=== PATIENT | female | born 1960 | race African-American/Black ===

== ENCOUNTER 2016-07-30 10:42 | Inpatient (IN) ==
[2016-07-30] MEDS ORDERED: FUROSEMIDE 100 MG/10 ML VIAL IV STA (11:07)
[2016-07-30] MEDS ORDERED: FUROSEMIDE 100 MG/10 ML VIAL ONE (11:18)
[2016-07-30] MEDS ORDERED: DOPamine 800 MG/250 ML PREMIX IV ONE (11:55)
--- NOTE | 2016-07-30 12:07 | XRay Report ---
Portable chest Date: 07/30/2016 Clinical history: Shortness of breath Comparison: None Technique: Portable AP sitting chest Findings: The heart is enlarged. Limited expiratory chest with relative elevation of the right hemidiaphragm which projects 73 mm higher than the left. Atelectasis/infiltration in both lungs. No acute osseous findings are noted. Impression: Limited expiratory chest. Relative elevation of the right hemidiaphragm with atelectasis/infiltration in the right mid to lower lung zone and at the left lung base. PROCEDURE INTERPRETED AT [facility] DEPARTMENT OF RADIOLOGY Final Report Signed by: Dr. Chana Yan
[2016-07-30 12:10] LABS: Basophils # 0.1 10*3/uL (0.0-0.2); Basophils % 0.3 % (0.0-0.8); Eosinophils % 0.1 % (0.00-10.9); Hematocrit 36.8 VOL% (35.7-47.0); Hemoglobin 13.1 GM/DL (12.0-16.0); Immature Granulocytes % 2.4 %; Immature Granulocytes Absolute 0.38 #; Lymphocytes # 1.6 10*3/uL (1.4-4.0); Lymphocytes % 9.6 % (21.3-54.2); Mean Corpuscular HGB Conc 35.6 GM/DL (32-36); Mean Corpuscular Hemoglobin 28 PG (27-34); Mean Corpuscular Volume 78.6 FL (87-102); Mean Platelet Volume 12.2 FL (9.6-12.0); Monocytes # 0.5 10*3/uL (0.11-0.8); Monocytes % 3.3 % (1.7-12.7); Neutrophils # 13.6 10*3/uL (1.4-7.4); Neutrophils % 84.3 % (38.7-73.9); Platelet Count 297 T/CUMM (130-400); Red Blood Count 4.68 MC/CUMM (3.8-5.5); Red Cell Distribution Width 14.4 % (9.3-17.3); White Blood Count 16.1 T/CUMM (4-12)
[2016-07-30] MEDS ORDERED: DOPamine 800 MG/250 ML PREMIX IV SCH (12:30)
[2016-07-30 12:35] LABS: Calcium 8.1 MG/DL (8.5-10.1); Osmolality,Calculated 280.1 MOS/KG (273-304); Potassium 5.2 MMOL/L (3.5-5.1)
[2016-07-30 12:38] LABS: Band Neutrophils 16 % (0-10); Burr Cells Slight; Hypochromasia 1+; Lymphocytes 10 % (20-55); Metamyelocytes 5 %; Microcytosis 1+; Segmented Neutrophils 66 % (50-85); Target Cells Slight; Total Cells Counted 100
[2016-07-30 12:41] LABS: Platelet Estimate Adequate
[2016-07-30] MEDS ORDERED: ENOXAPARIN 120 MG/0.8 ML SYRINGE SUBCUT STA (12:43)
[2016-07-30] MEDS ORDERED: ENOXAPARIN 120 MG/0.8 ML SYRINGE SUBCUT ONE (12:44)
[2016-07-30] MEDS ORDERED: SODIUM CHLORIDE 0.9% 500 ML IV STA ×2 (12:44→13:13)
[2016-07-30] MEDS ORDERED: MEROPENEM 1,000 MG in SODIUM CHLORIDE 0.9% 100 ML IV STA (12:46)
[2016-07-30] MEDS ORDERED: MEROPENEM 1,000 MG VIAL IV ONE (13:09)
--- NOTE | 2016-07-30 13:18 | Ultrasound Report ---
Exam: Bilateral lower extremity venous Doppler ultrasound Comparison: None Clinical history: Shortness of breath Technique: Duplex scan of the lower extremity veins using B-mode/grayscale scaled imaging and Doppler spectral analysis and color flow. Findings: Major venous structures of the lower extremities demonstrate a normal course and caliber. Normal color-flow study and spectral analysis. There is normal compression and augmentation of bilateral common femoral, superficial femoral and popliteal veins. The proximal bilateral greater saphenous veins appear to be patent. Impression: No evidence to suggest deep venous thrombosis within either lower extremity. Ultrasound images were captured and stored. PROCEDURE INTERPRETED AT [facility] DEPARTMENT OF RADIOLOGY Final Report Signed by: Dr. Chana Yan
--- NOTE | 2016-07-30 13:40 | EKG Report ---
Stationary ECG Study [facility] ER Test Date: 07/30/2016 11:17:31 AM Pat Name: CAMILLA PENN Department: Room: 116 Gender: F Biostatistics Teacher: KEYSHA Appiah : 1960 Requested by: Drew Briggs Order Number: [id number] Reading MD: JOHN KATE Intervals [place] Rate: 112 P: -4 OH: 140 QRS: -6 QRSD: 101 T: 95 QT: 302 QTc: 368 Interpretive Statements SINUS TACHYCARDIA POOR R-WAVE PROGRESSION Electronically Signed On 07-31-16 12:03:20 CDT by JOHN KATE [email or web address]
[2016-07-30 13:44] LABS: INR 1.2; PT Patient Result 12.9 SECS; Partial Thromboplastin Time 32.8 SECS (0-40)
[2016-07-30] MEDS ORDERED: ONDANSETRON 4 MG/2 ML VIAL IV STA (14:04)
[2016-07-30] MEDS ORDERED: SODIUM CHLORIDE 0.9% 1,000 ML IV STA (14:04)
--- NOTE | 2016-07-30 14:11 | Emergency Department Note ---
Elian Gordillo Brooke, am scribing for, and in the presence of, Mazin Hernandez MD 11 :08. David Gordillo Doug C, MD, personally performed the services described in this documentation, ascribed by Pamela Plummer in my presence, and it is both accurate and complete . Arrival - Arrival Chief Complaint: Shortness of Breath Stated Complaint: SOB ED Nursing Triage Note: pt to triage with c/o having sob onset last night around 0000, pt denies any sob. pt states she was just seen in er yesterday and that they found a mass in her abd. pt states she just cant catch her breath. unable to obtain all vital signs in triage upon multiple attempts. Mode of Arrival: Wheelchair Limitations: No Limitations Source: Patient, Family, RN Notes Reviewed - History of Present Illness HPI Narrative: Patient 56-year-old black female presents emergency room complaining of increasing shortness of breath. Patient been here to the emergency room yesterday and was found to have a very large ovarian mass. Patient was seen in the ER by Dr. Hess and I discussed her care with Dr. Petty at [facility]. They were on diversion yesterday but we were able to make Mrs. Gee an appointment to be seen by the [facility]PERATIONS [facility]NALY[facility] oncology clinic on August 01. Patient states she developed increasing shortness of breath beginning last night. She denies any chest pain and she denies any abdominal pain. Her abdomen continues to be tense as yesterday. Allergies/Adverse Reactions: Allergies Allergy/AdvReac Type Severity Reaction Status Date / Time No Known Allergies Allergy Unverified 07/29/16 06:29 Home Medications: Home Medications Medication Instructions Recorded Confirmed Type Aspirin [Ecotrin] 81 mg PO QPM 07/29/16 07/30/16 History Ondansetron Tab [Zofran Tab] 4 mg PO Q6H #20 tablet 07/29/16 07/30/16 Rx Promethazine Tab [Phenergan Tab] 25 mg PO Q6H #20 tablet 07/29/16 07/30/16 Rx amLODIPine [Norvasc] 10 mg PO DAILY 07/29/16 07/30/16 History Review of System - Review of System 12 point system: reviewed and no additional remarkable complaints except as stated - Review of System Constitutional: Absent: fever Respiratory: Present: other (SOB). Absent: respiratory distress Gastrointestinal: Absent: abdominal pain, nausea, vomiting Skin: Absent: rash Medical,Surgical,& Family Hx - Medical History Cardio: History of: Hypertension Genitourinary: History of: Problems (Large left ovarian mass) - Social History Smoking Status: Never smoker Frequency of Alcohol Use: None Type of Drug Use: None Exam Vital Signs: Vital Signs Temperature 96.3 F L 07/30/16 10:48 Pulse Rate 110 H 07/30/16 14:01 Respiratory Rate 26 H 07/30/16 14:01 Blood Pressure 63/45 07/30/16 14:01 O2 Sat by Pulse Oximetry 94 L 07/30/16 14:01 - General General appearance: alert, in distress (Patient is dyspneic at rest) - Head Head exam: Present: atraumatic, normocephalic - Eye Eye exam: Present: normal appearance, PERRL, EOMI - ENT ENT exam: Present: normal exam - Neck Neck exam: Present: normal inspection - Chest Chest inspection: Present: normal inspection, symmetric chest wall rise - Respiratory Respiratory exam: Present: rales (bibasilar), respiratory distress. Absent: normal lung sounds bilaterally - Cardiovascular Cardiovascular exam: Present: regular rate, normal rhythm, normal heart sounds - Abdominal Exam Abdominal exam: Present: distention. Absent: soft, tenderness - Extremities Exam Extremities exam: Present: normal inspection - Back Exam Back exam: Present: normal inspection - Neurological Exam Neurological exam: Present: alert, oriented X3, CN II-XII intact. Absent: motor sensory deficit - Psychiatric Psychiatric exam: Present: normal affect, normal mood - Skin Skin exam: Present: warm, dry, intact, normal color Course Course Narrative: I discussed the patient's clinical presentation and declined from yesterday with physician at [facility]. Patient was not accepted as they do not have any intensive care beds. I called [facility] and discussed her condition and circumstance with Dr. Suarez who also informed me that no unit bed was available. There is no unit beds available at [facility] and I called [facility] and they do not take her insurance. I discussed her care with Dr. Hess and the hospitalist service. I also discussed her care with Dr. Yan and explained my feeling that she needs an emergent paracentesis. I told the family that this could result in extension of tumor to the anterior abdominal wall and they understand the risk and benefits. Patient's presently on IV dopamine after having received a liter of saline. Patient and family are both aware of her critical condition. Results - Labs CBC & BMP: 07/30/16 11:43 07/30/16 11:43 Lab Results: I have reviewed the patients labs Labs: Laboratory Tests 07/30/16 03 11:43 11:43 WBC 16.1 H D MCV 78.6 L MPV 12.2 H Neut % (Auto) 84.3 H Lymph % (Auto) 9.6 L Neut # (Auto) 13.6 H Band Neutrophils 16 H Lymphocytes 10 L Sodium 135 L Potassium 5.2 H Anion Gap 21.2 H BUN 38 H Creatinine 3.60 H Glucose 135 H Calcium 8.1 L Laboratory Tests 07/30/16 11:43 B-Natriuretic Peptide 140 H - Diagnostic Findings Procedure: Chest x-ray: report reviewed by me (Limited expiratory chest. Relative elevation of the right hemidiaphragm with atelectasis/infiltration in the right mid to lower lung zone and at the left lung base.), Ultrasound: report reviewed by me (US venous doppler LE BI: No evidence to suggest deep venous thrombosis within either lower extremity.) Disposition Clinical Impression: Ovarian mass, left, Hypoventilation, Shock Case discussed with: patient, patient's family, patient's physician Disposition: Still a Patient Condition: Critical Time of Disposition: 14:10
[2016-07-30] MEDS ORDERED: SODIUM CHLORIDE 0.9% 0 ML IV ONE (14:33)
[2016-07-30] MEDS ORDERED: HEPARIN/NACL 0.9% 2 UNITS/ML 500 ML IV ONE (14:41)
--- NOTE | 2016-07-30 14:42 | Hospitalist History & Physical ---
<Cande Harper - Last Filed: 07/30/16 14:29> Assessment and Plan - Time spent with patient Time spent with patient: Less than 30 minutes (1) Sepsis associated hypotension Status: Acute Assessment and plan: 56-year-old -[place] female with history of hypertension admitted to Dr. Monsivais with severe sepsis. Patient has elevated white count of 16, hypotensive on dopamine drip. unable to accurately get a good blood pressure or blood gas from patient at this time. Dr. Monsivais will place a central line and art line at the bedside. Sepsis protocol has been initiated to further recommendations to follow Current Visit: Yes (2) Pelvic mass in female Status: Acute Current Visit: No History of Present Illness Chief complaint: sob History of present illness: Ms. Gee is a 56 year old female with history of hypertension presenting to the ED today with increasing shortness of breath. Patient had been to the ED yesterday with nausea vomiting and diarrhea. 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 She also has additional free ascites demonstrated within the abdomen scattered throughout the mesentery and dependent in the pelvis. Peritoneal disease and omental caking is suggested. She has an enlarged left inguinal lymph node that may reflect metastatic disease. Patient patient was treated with anti-medics and discharged home with a follow-up appointment at [place] on Monday for KIL[employer] OPERATOR HELPER oncologist. Patient states otherwise she has had no difficulties. This morning she came back into the ED with increasing shortness of breath. Patient's found to have pulse rate in the 110s high respiratory rate in the 30s and blood pressure is now 63/45. She has been placed on BiPAP receive Lasix a dose of antibiotics, and she has been placed on a dopamine drip. The ED physician has attempted to transfer patient out of the ED to various hospitals and everybody is on diversion. Patient will be admitted by Dr. Monsivais and stabilized for possible transfer to another facility. Home Medications Medication Instructions Recorded Confirmed Type Aspirin [Ecotrin] 81 mg PO QPM 07/29/16 07/30/16 History Ondansetron Tab [Zofran Tab] 4 mg PO Q6H #20 tablet 07/29/16 07/30/16 Rx Promethazine Tab [Phenergan Tab] 25 mg PO Q6H #20 tablet 07/29/16 07/30/16 Rx amLODIPine [Norvasc] 10 mg PO DAILY 07/29/16 07/30/16 History Allergies Allergy/AdvReac Type Severity Reaction Status Date / Time No Known Allergies Allergy Unverified 07/29/16 06:29 Medical,Surgical,& Family Hx - Medical History Cardio: History of: Hypertension Genitourinary: History of: Problems (Large left ovarian mass) - Surgical History Cardiac Surgeries: Patient Denies: Cardiac Surgery Abdominal Surgeries: Patient denies: Abdominal Surgery Reproductive Surgeries: Patient denies;: Genitourinary Surgery - Family History Family History: Denies;: Family Cancer - Social History Smoking Status: Never smoker Frequency of Alcohol Use: None Type of Drug Use: None Review of systems: A complete 10 system review of systems was obtained and pertinent negatives and positives are in HPI Exam - Constitutional Vitals: Period Temp Pulse Resp BP Sys/Baker Pulse Ox Last 24 Hr 110 26 63/45 94 Exam: Constitutional System: Moderate distress. No tremulousness. Head: Normocephalic, atraumatic. Ears, Nose and Throat System: No evidence of Otitis or Mastoiditis. No epistaxis or discharge Eyes System: Pupils equal, round, and reactive. Extraocular muscles intact. Neck: Supple, without adenopathy, No jugular venous distention. No thyromegaly, neck mass, or prior surgery apparent. Respiratory System: Chest diminished breath sounds bilaterally to auscultation. Cardiovascular System: Heart with regular tachycardia rate and rhythm. No murmur. GI System: tense, hard distended abdomen, nontender, no appreciable bowel sounds Musculoskeletal System: limbs with mild pedal edema. Poor distal pulses Neurological System: No discernable sensory deficit. No aphasia Psychiatric System: Conversation is rational Results - Labs CBC & BMP: 07/30/16 11:43 07/30/16 11:43 Lab Results: I have reviewed the past 24 hour labs - EKG EKG results: interpreted by KATTY - Diagnostic Findings Procedure: Chest x-ray: image reviewed by me, report reviewed by me, CT Abdomen and Pelvis: report reviewed by me, image reviewed by me <[place] Monsivais - Last Filed: 07/30/16 16:32> Assessment and Plan - Time spent with patient Time spent with patient: Greater than 30 minutes (1) Severe sepsis with acute organ dysfunction Status: Acute Assessment and plan: presumed intra-abdominal source. Cultures are pending. IV Zosyn for now. Pressors as required. Aggressive IVF hydration. Serial lactic acid Current Visit: Yes (2) Acute respiratory failure with hypoxia Status: Acute Assessment and plan: acute hypoxic and hypercapnic resp failure. While pt initially agreed to intubation and mechanical ventilation she now is wavering on that decision. She now ask to "think about it some more" before allowing us to proceed. Will place on BiPap for now. I anticipate that the pt will further decline and require emergent intubation soon if she does not decide to change to DNR Current Visit: Yes (3) Acute renal failure Status: Acute Assessment and plan: Henry placed. UOP ok so far. suspect ATN related to sepsis. Monitor response to tx of underlying sepsis. Nephrology consult if not improved Current Visit: Yes (4) Metabolic acidosis Status: Acute Assessment and plan: Lactate pending but I anticipate this to be elevated; further compounded by renal failure and respiratory acidosis. 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 tx to [facility] [facility]PERATOR HEL[employer] oncology pending Current Visit: Yes (6) Pelvic mass in female Status: Acute Current Visit: No History of Present Illness History of present illness: Pt seen and examined with CONCHITA Harper. Presumed sepsis and acute hypoxic resp failure POA in pt with large tumor burden in abdomen and pelvis. Thought to be metastatic KILN OPERATOR HELPER cancer. Pt and family advised of anticipated poor prognosis. They wish to proceed with aggressive treatment and consent to central line, a- line, intubation and mechanical ventilation if needed. Exam findings, assessment and plan confirmed as documented. KILN OPERATOR HELPER and oncology consulting. Pt desires eval and tx by [facility]PER[facility] HEL[facility] oncology at [facility]. Currently there are no beds available for transfer. Pt has been accepted for transfer when bed becomes available. Regarding hypoxic resp failure, acute PTE has not been excluded. Acute renal failure precludes CTA. Plan for anticoagulation until this can be excluded. Procedure: central line insertion. Indication= shock, need for venous access. Procedure explained to pt in detail and consent obtained. I was assisted by CONCHITA Harper. The pt was prepped and draped in sterile fashion. I wore sterile gown, gloves, head cover, and mask. Using bedside ultrasound the left IJ was identified and then cannulized under direct visualization. Triple lumen cath placed over wire without complication. All ports flushed and function. Placement confirmed by xray. No pneumothorax. 6 hour severe sepsis bundle: pt has received initial fluid bolus and vasopressor tx. Lactic acid level pending. BP labile but improved. Cap refill less than 3 seconds. Pt is awake and alert. At the time of this documentation we have spent 70 minutes in critical care time. Exam - Constitutional Vitals: Period Temp Pulse Resp BP Sys/Baker Pulse Ox Last 24 Hr 110 26 63/45 94 Results - Labs CBC & BMP: 07/30/16 11:43 07/30/16 11:43
[2016-07-30] MEDS ORDERED: NOREPINEPHRINE 8 MG in SODIUM CHLORIDE 0.9% 242 ML IV SCH (15:00)
[2016-07-30] MEDS ORDERED: PIPERACILLIN/TAZOBACTAM 3,375 MG in SODIUM CHLORIDE 0.9% 100 ML IV SCH (15:00)
--- NOTE | 2016-07-30 15:17 | OB/GYN Consult Note ---
Assessment and Plan (1) Pelvic mass in female Status: Acute Assessment and plan: The pt has been admitted to the ICU due to her low BP, SOB and low O2 sats. We are attempting to transfer her to a facility that has a rn gyn oncologist for further evaluation and treatment. The pt was ruled out for a DVT but we are not able to do a spiral CT to r/u PE due to her creatinine being too high. She was treated with lovenox empirically. The pt's SOB could be due to the mass effect or the ascites. We will consider a paracentesis if needed. Current Visit: No History of Present Illness Chief complaint: SOB History of present illness: Ms. Gee is a 56 year old female This is a 56 y/o G0 who was seen by me yesterday for nausea/vomiting and was noted to have a large adnexal mass which has taken over most of her abdomen. She was also noted to have ascites and omental caking on a CT scan. The pt was discharged home with an appointment made for her to see the rn gyn oncologist, Dr. Dinero. The pt comes in today with SOB and was admitted to the ICU on placed on pressors because she was noted to be hypotensive. Home Medications Medication Instructions Recorded Confirmed Type Aspirin [Ecotrin] 81 mg PO QPM 07/29/16 07/30/16 History Ondansetron Tab [Zofran Tab] 4 mg PO Q6H #20 tablet 07/29/16 07/30/16 Rx Promethazine Tab [Phenergan Tab] 25 mg PO Q6H #20 tablet 07/29/16 07/30/16 Rx amLODIPine [Norvasc] 10 mg PO DAILY 07/29/16 07/30/16 History Allergies Allergy/AdvReac Type Severity Reaction Status Date / Time No Known Allergies Allergy Unverified 07/29/16 06:29 Medical,Surgical,& Family Hx - Medical History Cardio: History of: Hypertension Genitourinary: History of: Problems (Large left ovarian mass) - Surgical History Cardiac Surgeries: Patient Denies: Cardiac Surgery HEENT Surgeries: Patient denies: Tonsilectomy & Adenoidectomy Abdominal Surgeries: Patient denies: Abdominal Surgery Reproductive Surgeries: Patient denies;: Genitourinary Surgery - Family History Family History: Reports;: Family Diabetes, Family Heart Disease, Family Hypertension Denies;: Family Cancer - Social History Smoking Status: Never smoker Frequency of Alcohol Use: None 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
--- NOTE | 2016-07-30 16:08 | XRay Report ---
Portable chest Date: 07/30/2016 Clinical history: Central line placement Comparison: 07/30/2016 Technique: Portable AP sitting chest Findings: Persistent cardiomegaly. Insertion of left IJ CVP line with tip in the lateral SVC location. No definite pneumothorax. Persistent relative elevation on the right hemidiaphragm. Progressive diffuse parenchymal findings in the lungs. Stable mediastinum and osseous structures. Impression: Interval insertion of left IJ CVP line with tip projecting in the lateral SVC location. No definite pneumothorax. Persistent relative elevation of the right hemidiaphragm. Progressive significant atelectasis/infiltration/edema in the lungs with small left pleural effusion. Follow-up chest x-ray recommended. PROCEDURE INTERPRETED AT [facility] DEPARTMENT OF RADIOLOGY Final Report Signed by: Dr. Chana Yan
[2016-07-30 16:16] LABS: ABG Base Excess -9.1 MMOL/L (-2.5-2.5); ABG HCO3 22.4 MMOL/L (20-26); ABG Oxygen Saturation 82.1 % (95-100); ABG PO2 62.7 MM HG (80-95); ABG TCO2 24.8 MMOL/L (23-27)
[2016-07-30 16:18] LABS: ABG PCO2 78.6 MM HG (35-48); ABG PH 7.072 (7.35-7.45)
[2016-07-30] MEDS ORDERED: HEPARIN DRIP 25,000 UNITS/500 ML PREMIX IV SCH (17:00)
[2016-07-30] MEDS ORDERED: SODIUM BICARB INJ 150 MEQ in DEXTROSE 5% 850 ML IV SCH (17:00)
[2016-07-30] MEDS ORDERED: LORazepam 2 MG/1 ML VIAL IV PRN (17:28)
[2016-07-30 18:15] LABS: INR 1.3; PT Patient Result 13.4 SECS
[2016-07-30 18:17] LABS: Partial Thromboplastin Time 41.8 SECS (0-40)
--- NOTE | 2016-07-30 18:43 | Nuclear Medicine Report ---
Exam: Lung scan ventilation/perfusion Date: 07/30/2016 Comparison: Chest x-ray 07/30/2016 Reason: Shortness of breath Technique: 40 mCi of technetium 99m DTPA aerosolized was inhaled with injection of 5 mCi of technetium 99m MAA . Limited 3 view Ventilation and perfusion images of both lungs were acquired. Findings: Multiple ventilation defects are noted in both lungs. Trapping centrally in the lungs. No unmatched defects are identified on the perfusion scans. The perfusion defects are smaller than the ventilation defects. Impression: 3 view low probability lung scan. PROCEDURE INTERPRETED AT [facility] DEPARTMENT OF RADIOLOGY Final Report Signed by: Dr. Chana Yan
[2016-07-30] MEDS ORDERED: SODIUM CHLORIDE 0.9% 1,000 ML IV ONE (22:10)
--- NOTE | 2016-07-30 23:13 | Event Note ---
I was called to the bedside of Ms. Camille Gee lady was admitted to the hospital today with diffuse metastatic ovarian carcinoma. Prognosis is very poor from the get go. Patient was made DNR I. She had developed as history no blood pressure with no spontaneous breathing. The family had order not to put on intubation. Attempted ACLS per advanced directive could not revive her. Therefore I ordered ACLS be stopped. Patient had no spontaneous bleeding at the time there was no cardiac activity electrical or mechanical issues were not responsive. Patient was pronounced at 20:25 on July 30, 2016.
[2016-07-30 23:55] VITALS: BP 0/0
--- NOTE | 2016-08-01 10:20 | Physician Query Form ---
CLICK EDIT DOCUMENT TO SELECT QUERY ANSWER --> OK --> SIGN Nicole Gorman RN, CCDS Certified Clinical It Risk Advisor W) [phone] (f) [phone] [email or web address] PROVIDERS: Make your selection(s) from the choices in EACH section by typing an "x" and enter comments in the comment section. Please use your independent medical judgment in providing your response. This request does not imply that any particular answer is desired or expected. CLINICAL INDICATORS: (Providers should not edit this section) The medical record indicates that the patient was admitted with sepsis, hypotension, BP of 63/45, bolused a 1,000 cc of IVF, then bolused 500 cc of IVF , and the patient was place don Dopamine.---(Also was in [facility]) Please clarify which, if any, of the following is the etiology of the above symptoms and treatment rendered: ( ) Septic shock ( ) Hypovolemic shock ( ) Cardiogenic shock ( ) Hemorrhagic shock ( ) Traumatic shock ( ) Shock due to, please specify etiology: ( ) Shock, unknown etiology ( ) Drug induced, please specify substance: ( ) Iatrogenic Hypotension ( ) Orthostatic Hypotension (x ) Hypotension, unknown etiology ( ) Other, please specify: ( ) Clinically unable to determine COMMENTS: Use of terms such as suspected, likely, or probable (associated with a specific diagnosis that is being evaluated, monitored, or treated as if it exists) are acceptable and can be restated in the discharge summary if not ruled out. MTDD
== END 2016-07-30 22:25 | disposition expired | DRG 871 ==
LOC: N.ED 10:42 → N.EDINP 13:31 → N.ICU 14:09
PROVIDERS: ADMIT Internal Medicine; ATTEND Internal Medicine